=== PATIENT | male | born 2000 | race Two or more races ===

== ENCOUNTER 2021-02-06 12:19 | Emergency (ER) | payer MEDICAID ==
[~2021-02-06] VITALS: Ht 162.6 cm; Wt 59.0 kg
[2021-02-06] MEDS ORDERED: MORPHINE SULFATE INJ 4 MG/ML DISP.SYRIN ONE (12:45)
[2021-02-06] MEDS ORDERED: ONDANSETRON HCL/PF 4 MG/2 ML VIAL ONE (12:45)
[2021-02-06] MEDS ORDERED: TDAP [DIPH/PERTUSSIS/TET] 0.5 ML VIAL IM ONE ×2 (12:47→13:00)
[2021-02-06] MEDS ORDERED: MORPHINE SULFATE INJ 2 MG/ML DISP.SYRIN IV ONE (13:00)
[2021-02-06] MEDS ORDERED: ONDANSETRON HCL/PF 4 MG/2 ML VIAL IVP ONE (13:00)
[2021-02-06] MEDS ORDERED: IV NS 0.9% 1,000 ML BAG IV ONE (13:00)
[2021-02-06 13:02] LABS: BASOPHILS # (AUTO) 0.1 /CMM (0.0-0.2); EOSINOPHILS % (AUTO) 1.1 % (0.0-6.0); HEMATOCRIT 44 % (39-51); HEMOGLOBIN 14.5 g/dL (13.5-17.5); LYMPHOCYTES # (AUTO) 1.8 /CMM (0.8-4.8); LYMPHOCYTES % (AUTO) 23.1 % (20.0-44.0); MEAN CORPUSCULAR HGB CONC 33 g/dl (31.0-36.0); MEAN CORPUSCULAR VOLUME 87 fL (80-96); MONOCYTES # (AUTO) 0.5 /CMM (0.1-1.30); MONOCYTES % (AUTO) 6.7 % (2.0-12.0); NEUTROPHILS # (AUTO) 5.3 /CMM (1.8-8.9); NEUTROPHILS % (AUTO) 68.1 % (43.0-81.0); PLATELET COUNT (AUTO) 281 /CMM (150-450); RED BLOOD CELL COUNT(AUTO) 5.03 MIL/uL (4.5-6.0); WHITE BLOOD COUNT (AUTO) 7.8 K/uL (4.3-11.0)
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
[2021-02-06 13:09] LABS: CALCIUM, SERUM 8.7 mg/dL (8.5-10.1); CREATININE 0.8 mg/dL (0.6-1.3); POTASSIUM 3.7 mmol/L (3.5-5.1)
--- NOTE | 2021-02-06 13:38 | NUR ---
TRANSPORT FOR [facility] ETA IS [phone]
[2021-02-06 15:02] VITALS: BP 129/78
--- NOTE | 2021-02-06 15:06 | NUR ---
REPORT GIVEN TO MEL VILLA RN AT [facility] ER FOR TRINI.
--- NOTE | 2021-02-06 15:30 | NUR ---
LAB CALLED RE: COVID NEGATIVE RESULT. PRIMARY NURSE AWARE.
--- NOTE | 2021-02-06 15:55 | NUR ---
PT ENROUTE TO [facility] VIA [facility] FOR TRINI.
== END 2021-02-06 16:01 | disposition short-term general hospital (02) ==
LOC: ER 12:21
DX: T20.20XA Burn of second degree of head, face, and neck, unspecified site, initial encounter (principal); T22.291A Burn of second degree of multiple sites of right shoulder and upper limb, except wrist and hand, initial encounter; T23.271A Burn of second degree of right wrist, initial encounter; T20.27XA Burn of second degree of neck, initial encounter; X10.1XXA Contact with hot food, initial encounter; Y93.89 Activity, other specified; Y92.89 Other specified places as the place of occurrence of the external cause; Y99.0 Civilian activity done for income or pay; Z20.822 Contact with and (suspected) exposure to COVID-19
CPT/HCPCS: 36415; 80048; 85025; 85730; 87426; 90471; 90715; 96361; 96374; 96375; 99285; C9803; J2270; J2405; J7030